=== PATIENT | male | born 1985 | race Caucasian/White ===

== ENCOUNTER 2019-06-25 16:27 | Emergency (ER) | payer SELFPAY ==
[2019-06-25 16:36] VITALS: BP 150/93; PULSE 89; TEMP 97.9; BMI 36.2
--- NOTE | 2019-06-25 17:37 | PDOC ---
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 This pain has been intermittent but has been constant today associated with dizziness described as spinning. States his pain is 7/10 [id number] in quality and radiates to his back in the same position. States he has been stress for about a month because he is on Workmen's Compensation currently. He is a smoker 1 pack/day but has increased his use recently. He has had no recent travel, family history negative for AK/CVA/PE/DVT. PMD: [facility] PMHX: As above PSOCHX: (+) cig 1 PPD, (-) etoh, (-) drug ALL: NKDA GENERAL/CONSTITUTIONAL: [No fever or chills. No weakness. No weight change.] HEAD, EYES, EARS, NOSE AND THROAT: [No change in vision. No ear pain or discharge. No sore throat.] CARDIOVASCULAR: [(+) chest pain, (-) shortness of breath.] RESPIRATORY: [No cough, wheezing, or hemoptysis.] GASTROINTESTINAL: [No nausea, vomiting, diarrhea or constipation. No rectal bleeding.] GENITOURINARY: [No dysuria, frequency, or change in urination.] MUSCULOSKELETAL: [No joint or muscle swelling or pain. No neck or back pain.] SKIN AND BREASTS: [No rash or easy bruising.] NEUROLOGIC: [No headache, (+) vertigo, loss of consciousness, or loss of sensation.] PSYCHIATRIC: [No depression or anxiety.] ENDOCRINE: [No increased thirst. No abnormal weight change.] HEMATOLOGIC/LYMPHATIC: [No anemia, easy bleeding, or history of blood clots.] ALLERGIC/IMMUNOLOGIC: [No hives or skin allergy. No latex allergy.] GENERAL: [The patient is awake, alert, and fully oriented, in no acute distress. ] HEAD: [Normal with no signs of trauma.] EYES: [Pupils equal, round and reactive to light, extraocular movements intact, sclera anicteric, conjunctiva clear.] ENT: [Ears normal, nares patent, oropharynx clear without exudates. Moist mucous membranes.] NECK: [Normal range of motion, supple without lymphadenopathy, JVD, or masses.] LUNGS: [Breath sounds equal, clear to auscultation bilaterally. No wheezes, and no crackles.] HEART: [Regular rate and rhythm, normal S1 and S2 without murmur, rub.] ABDOMEN: [Soft, nontender, normoactive bowel sounds. No guarding, no rebound. No masses.] EXTREMITIES: [Normal range of motion, no edema. No clubbing or cyanosis. No cords, erythema, or tenderness.] NEUROLOGICAL: [Cranial nerves II through XII grossly intact. Normal speech, normal gait.] PSYCH: [Normal mood, normal affect.] SKIN: [Warm, Dry, normal turgor, no rashes or lesions noted.] Past History - Past Medical History Allergies/Adverse Reactions: Allergies Allergy/AdvReac Type Severity Reaction Status Date / Time No Known Allergies Allergy Verified 06/25/19 16:36 Home Medications: Ambulatory Orders Amitriptyline HCl 25 mg PO DAILY 06/25/19 COPD: No HTN: Yes (Diet controlled) Other medical history: angiogram for heart vein malformation ? - Surgical History Orthopedic Surgery: Yes (R rotator cuff surgery) - Immunization History Immunization Up to Date: No - Psycho Social/Smoking Cessation Hx Smoking Status: Yes Smoking History: Never smoked Have you smoked in the past 12 months: Yes Number of Cigarettes Smoked Daily: 4 'Breaking Loose' booklet given: 04/20/13 Hx Alcohol Use: Yes (occasional) Drug/Substance Use Hx: Yes (marijuana) Substance Use Type: None *Physical Exam - Vital Signs Last Vital Signs Temp Pulse Resp BP Pulse Ox 97.9 F 89 18 150/93 100 06/25/19 16:29 06/25/19 16:29 06/25/19 16:29 06/25/19 16:29 06/25/19 16:36 ED Treatment Course - LABORATORY CBC & Chemistry Diagram: 06/25/19 17:30 06/25/19 17:30 - ADDITIONAL ORDERS Additional order review: Laboratory Results 06/25/19 17:30 Sodium 140 Potassium 4.1 Chloride 107 Carbon Dioxide 26 Anion Gap 7 L BUN 10.7 Creatinine 0.8 Est GFR (CKD-EPI)AfAm 136.03 Est GFR (CKD-EPI)NonAf 117.37 Random Glucose 94 Calcium 8.8 Total Bilirubin 0.5 AST 17 ALT 28 Alkaline Phosphatase 88 Creatine Kinase 194 Creatine Kinase Index 0.6 CK-MB (CK-2) 1.2 Troponin I < 0.02 Total Protein 6.9 Albumin 3.9 06/25/19 17:30 RBC 5.32 MCV 91.2 MCHC 33.2 RDW 13.4 MPV 7.5 Neutrophils % 71.6 Lymphocytes % 19.8 D Monocytes % 7.2 Eosinophils % 0.8 Basophils % 0.6 - RADIOLOGY Radiology Studies Ordered: Category Date Time Status CHEST PA & LAT [RAD] Stat Radiology 06/25/19 17:29 Taken Medical Decision Making - Medical Decision Making 06/25/19 17:31 Patient is a 33-year-old male with 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 This pain has been intermittent but has been constant today associated with dizziness described as spinning. States his pain is 7/10 [id number] in quality and radiates to his back in the same position. States he has been stress for about a month because he is on Workmen's Compensation currently. He is a smoker 1 pack/day but has increased his use recently. He has had no recent travel, family history negative for AK/CVA/PE/DVT. Symptoms seems to be consistent with noncardiac chest pain. However patient is a smoker 1 pack cigarette per day will check troponin x1 Labs Chest x-ray EKG Toradol. refused Review of discharge showed that patient had a normal echo in 2012. Patient provided further history states that he had a stress test and Holter monitor about 5 years ago which had no acute findings. Laboratory Tests 06/25/19 06/25/19 17:30 17:30 WBC 9.2 Hgb 16.1 Hct 48.5 Plt Count 236 Sodium 140 Potassium 4.1 Chloride 107 Carbon Dioxide 26 Anion Gap 7 L BUN 10.7 Troponin I < 0.02 Labs reviewed no acute findings Chest x-ray negative no acute infiltrates EKG: Sinus rate 100, LAD, incomplete RBBB, no ST-T wave changes. Patient feels improved states his chest pain is resolved. 06/25/19 19:10 I discussed the physical exam findings, ancillary test results and final diagnoses with the patient. I answered all of the patient's questions. The patient was satisfied with the care received and felt comfortable with the discharge plan and treatment plan. The Patient agrees to follow up with the primary care physician within 24-72 hours. Patient instructed to follow-up with cardiology. 06/25/19 20:28 Discharge - Discharge Information Problems reviewed: Yes Clinical Impression/Diagnosis: Chest pain Qualifiers: Chest pain type: unspecified Qualified Code(s): R07.9 - Chest pain, unspecified Condition: Stable Disposition: HOME - Follow up/Referral Referrals: Jasper Gloria MD [Staff Physician] - - Patient Discharge Instructions Additional Instructions: Your Discharge Instructions: You must call primary care physician within 24 hours to arrange follow-up. Return to the Emergency Department with any new, persistent or worsening symptoms, for fever, chills, SOB, dizziness or any other concerning changes that may occur. Follow up with cardiology - Post Discharge Activity
[2019-06-25 17:41] LABS: BASO % 0.6 % (0-2.0); EOS % 0.8 % (0-4.5); HEMATOCRIT 48.5 % (35.4-49); HEMOGLOBIN 16.1 GM/dL (11.7-16.9); LYMPH % 19.8 % (8-40); MCH 30.2 pg (25.7-33.7); MCHC 33.2 g/dl (32.0-35.9); MEAN CELL VOLUME 91.2 fl (80-96); MEAN PLT VOLUME 7.5 fl (7.5-11.1); MONO % 7.2 % (3.8-10.2); NEUT % 71.6 % (42.8-82.8); PLATELET COUNT 236 K/MM3 (134-434); RBC 5.32 M/mm3 (4.00-5.60); RDW 13.4 % (11.9-15.9); WHITE BLOOD COUNT 9.2 K/mm3 (4.0-10.0)
[2019-06-25 18:09] LABS: ALBUMIN 3.9 g/dl (3.4-5.0); ALK PHOS 88 U/L (45-117); ANION GAP 7 MMOL/L (8-16); BILIRUBIN,TOTAL 0.5 mg/dL (0.2-1); BLOOD UREA NITROGEN 10.7 mg/dL (7-18); CALCIUM 8.8 mg/dL (8.5-10.1); CHLORIDE 107 mmol/L (98-107); CO2 26 mmol/L (21-32); CREATININE 0.8 mg/dL (0.55-1.3); GLUCOSE,RANDOM 94 mg/dL (74-106); POTASSIUM 4.1 mmol/L (3.5-5.1); SGOT/AST 17 U/L (15-37); SGPT/ALT 28 U/L (13-61); SODIUM 140 mmol/L (136-145); TOT PROT 6.9 g/dl (6.4-8.2)
--- NOTE | 2019-06-26 15:50 | EKG ---
Test Reason : Blood Pressure : / mmHG Vent. Rate : 100 BPM Atrial Rate : 100 BPM P-R Int : 122 ms QRS Dur : 098 ms QT Int : 360 ms P-R-T Axes : 021 -20 051 degrees QTc Int : 464 ms NORMAL SINUS RHYTHM INCOMPLETE RIGHT BUNDLE BRANCH BLOCK POSSIBLE LATERAL INFARCT (CITED ON OR BEFORE 20-APR-2013) ABNORMAL ECG WHEN COMPARED WITH ECG OF 23-APR-2013 10:36, NO SIGNIFICANT CHANGE WAS FOUND Confirmed by JONELLE MOORE MD ([id number]) on 06/26/2019 3:49:51 PM Referred By: Confirmed By:JONELLE MOORE MD
== END 2019-06-25 19:24 | disposition home or self-care (01) ==
LOC: JER 16:27
DX: R07.9 Chest pain, unspecified (principal); I10 Essential (primary) hypertension; Z98.890 Other specified postprocedural states
CPT/HCPCS: 36415; 71046-TC-FY; 80053; 82550; 82553; 84484; 85025; 93005; 93010; 99284-25

== ENCOUNTER 2020-05-26 20:47 | Emergency (ER) | payer OTHER ==
[2020-05-26 20:53] VITALS: BMI 31.1
--- OUTSIDE RECORDS SUMMARY | 2020-05-26 20:58 | XMS ---
:1985 Author Organization [facility] Support Name Relationship Address Phone [place] [address] [employer] Unavailable [address] [place] [address] [employer] [address] [place] [id number] Re-disclosure Warning The records that you are about to access may contain information from federally- assisted alcohol or drug abuse programs. If such information is present, then the following federally mandated warning applies: This information has been disclosed to you from records protected by federal confidentiality rules (42 CFR part 2). The federal rules prohibit you from making any further disclosure of this information unless further disclosure is expressly permitted by the written consent of the person to whom it pertains or as otherwise permitted by 42 CFR part 2. A general authorization for the release of medical or other information is NOT sufficient for this purpose. The Federal rules restrict any use of the information to criminally investigate or prosecute any alcohol or drug abuse patient.The records that you are about to access may contain highly sensitive health information, the redisclosure of which is protected by Article 27-F of the [facility] Public Health law. If you continue you may haveaccess to information: Regarding HIV / AIDS; Provided by facilities licensed or operated by the [facility] Office of Mental Health; or Provided by the [facility] Office for People With Developmental Disabilities. If such information is present, then the following [facility] mandated warning applies: This information has been disclosed to you from confidential records which are protected by state law. State law prohibits you from making any further disclosure of this information without the specific written consent of the person to whom it pertains, or as otherwise permitted by law. Any unauthorized further disclosure in violation of state law may result in a fine or halfway sentence or both. A general authorization for the release of medical or other information is NOT sufficient authorization for further disclosure. Insurance Providers Payer name Policy type Policy ID Covered Covered libertarian's Policy P dain / Coverage libertarian ID relationship to [facility] [employer] type murray SELF PAY SP INSURANCE [facility] [id number] PLANS
[2020-05-26] MEDS ORDERED: diazePAM 5 MG TABLET PO ONE (21:55)
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
[2020-05-26] MEDS ORDERED: diazePAM 5 MG TABLET ONE (21:58)
[2020-05-26 23:01] LABS: BASO % 0.6 % (0-2.0); EOS % 0.2 % (0-4.5); HEMATOCRIT 46.5 % (35.4-49); HEMOGLOBIN 15.8 GM/dL (11.7-16.9); LYMPH % 24.1 % (8-40); MCH 30.7 pg (25.7-33.7); MCHC 33.9 g/dl (32.0-35.9); MEAN CELL VOLUME 90.5 fl (80-96); MEAN PLT VOLUME 7.4 fl (7.5-11.1); MONO % 8.5 % (3.8-10.2); NEUT % 66.6 % (42.8-82.8); PLATELET COUNT 283 K/MM3 (134-434); RBC 5.14 M/mm3 (4.00-5.60); RDW 13.3 % (11.9-15.9); WHITE BLOOD COUNT 11.4 K/mm3 (4.0-10.0)
[2020-05-26 23:38] LABS: ALK PHOS 87 U/L (45-117); BILIRUBIN,TOTAL 0.9 mg/dL (0.2-1); CHLORIDE 103 mmol/L (98-107); CREATININE 0.8 mg/dL (0.55-1.3); POTASSIUM 3.8 mmol/L (3.5-5.1); SGOT/AST 21 U/L (15-37); SGPT/ALT 23 U/L (13-61)
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
[2020-05-27 00:28] LABS: ALBUMIN 4.3 g/dl (3.4-5.0); ANION GAP 10 MMOL/L (8-16); BLOOD UREA NITROGEN 9.6 mg/dL (7-18); CALCIUM 9.2 mg/dL (8.5-10.1); CO2 25 mmol/L (21-32); GLUCOSE,RANDOM 84 mg/dL (74-106); MAGNESIUM 2.2 mg/dL (1.8-2.4); SODIUM 138 mmol/L (136-145); TOT PROT 7.8 g/dl (6.4-8.2)
[2020-05-27] MEDS ORDERED: QUEtiapine FUMARATE 300 MG TABLET PO ONE (01:29)
[2020-05-27] MEDS ORDERED: QUEtiapine FUMARATE 100 MG TABLET (FP) ONE (01:35)
[2020-05-27 06:13] VITALS: TEMP 97.7
--- NOTE | 2020-05-27 07:44 | PDOC ---
*Physical Exam - Vital Signs Last Vital Signs Temp Pulse Resp BP Pulse Ox 97.7 F 65 18 115/65 99 05/27/20 06:12 05/27/20 06:12 05/27/20 06:12 05/27/20 06:12 05/27/20 06:12 ED Treatment Course - LABORATORY CBC & Chemistry Diagram: 05/26/20 22:45 05/26/20 22:45 - ADDITIONAL ORDERS Additional order review: Laboratory Results 05/26/20 22:45 Sodium 138 Potassium 3.8 Chloride 103 Carbon Dioxide 25 Anion Gap 10 BUN 9.6 Creatinine 0.8 Est GFR (CKD-EPI)AfAm 135.08 Est GFR (CKD-EPI)NonAf 116.55 Random Glucose 84 Calcium 9.2 Magnesium 2.2 Total Bilirubin 0.9 AST 21 ALT 23 Alkaline Phosphatase 87 Troponin I < 0.02 Total Protein 7.8 Albumin 4.3 05/26/20 22:45 RBC 5.14 MCV 90.5 MCHC 33.9 RDW 13.3 MPV 7.4 L Neutrophils % 66.6 Lymphocytes % 24.1 D Monocytes % 8.5 Eosinophils % 0.2 Basophils % 0.6 - Medications Given in the ED: ED Medications Discontinued Medications Generic Name Dose Route Start Last Admin Trade Name Freq PRN Reason Stop Dose Admin Diazepam 5 mg 05/26/20 21:55 05/26/20 22:01 Valium - PO 05/26/20 21:56 5 mg ONCE ONE Administration Quetiapine Fumarate 300 mg 05/27/20 01:29 05/27/20 01:36 Seroquel - PO 05/27/20 01:30 300 mg ONCE ONE Administration Medical Decision Making - Medical Decision Making 05/27/20 07:41 Sign out received from Dr Coppola. Emeterio Yeung is a 35yo man seen overnight with depression and report of manic v hypomanic episodes over the past few weeks. He was medically cleared for discharge overnight but is here waiting to be seen by psychiatry. The pt received 5mg PO valium as well as 300mg PO seroquel and has been sleeping comfortably. 05/27/20 09:19 - Seen by psychiatry, Carlos Vidal. Cleared for discharge and outpatient follow up - Pt reports no questions, understands his follow up plan - Will discharge home Discussed with Dr Nassef Josefina Ramm PGY3 Discharge - Discharge Information Problems reviewed: Yes Clinical Impression/Diagnosis: Psychological disorder Condition: Stable Disposition: HOME - Admission No - Follow up/Referral Referrals: Carlos Vidal NP [Nurse Practitioner] - - Patient Discharge Instructions Patient Printed Discharge Instructions: Bipolar Disorder Additional Instructions: Discharge Instructions You were seen in the emergency department for recent depression and other psychological symptoms. You were cleared of any medical abnormality and were seen by the hospital psychiatry team. You will need to follow up with psychiatry as instructed at [facility] ([phone]). Seek immediate medical care at the closest hospital for any worsening symptoms, thoughts of suicide, thoughts of harming yourself or others, or any other m edical emergency. - Post Discharge Activity Work/Back to School Note: My Personal Safety Plan
--- NOTE | 2020-05-27 08:50 | CON.PSY ---
Psychiatry Consult Chief Complaint: Patient here for acute onset of Depressive symptoms History of Present Problem: Patient was brought to ER by his family because of his depressive symptoms, He reports that he has always been depressed but since August 2018 when he broke up with his and moved out, he has been worse. Recently,and what sparked his worsening symptoms was when he saw his exwife with her new boyfriend at his daughter's communion. He feels alone and has difficiulty sleeping Symptoms: reports: Depressed Mood, Worthlessness/Guilt, Decreased Energy, Impaired Concentration - Family History Family History: Denies - Allergies Allergies: Allergies Allergy/AdvReac Type Severity Reaction Status Date / Time No Known Allergies Allergy Verified 06/25/19 16:36 - Current Living Status Usual Living Arrangement: Alone (inhis own rental apartment) - Current Mental Status Evaluation Appearance: Other (normal appearance for the settin) - Affect Appropriateness: Appropriate to Content - Mood Mood: Depressed, Anxious, Irritable - Speech/Language Expressive: Coherent Receptive: Age Appropriate Comprehension of Spoken Words - Psychomotor Activity Psychomotor Activity: Normal - Thought Process Thought Process: Intact - Thought Content Hallucinations: Absent Delusions: Absent - Self Perception Self Perception: No Impairment - Cognition Attention: Alert Orientation: Time, Person, Place Memory, Immediate Recall: Intact Memory, Short Term: 3/3 - Concentration Simple Calculations Intact: Yes - Abstraction Proverb Interpretation: Intact Judgement: Minimally Impaired - Insight Insight: Impaired - Impulse Control Impulse Control: Minimally Impaired - Suicidal Ideation Suicidal Ideation: No Assessment/Plan Acute streses disorder on chronic depression Rule out Bipolar hx 5 suicidal attempt in the past no hx of psych. history no psych hospitalization no psych. meds in the past Not suicidal at this time/no attempt/no plan He can be discharged to home Rec: Continue Seroquel q hs for now Patient will come to see me in the [facility] at [facility], [place] in the am [phone] [facility]
[2020-05-27 09:58] VITALS: BP 126/68; PULSE 72
--- NOTE | 2020-05-27 14:03 | EKG ---
Test Reason : Blood Pressure : / mmHG Vent. Rate : 066 BPM Atrial Rate : 066 BPM P-R Int : 116 ms QRS Dur : 094 ms QT Int : 392 ms P-R-T Axes : 011 -07 035 degrees QTc Int : 410 ms NORMAL SINUS RHYTHM INCOMPLETE RIGHT BUNDLE BRANCH BLOCK BORDERLINE ECG WHEN COMPARED WITH ECG OF 25-JUN-2019 16:22, VENT. RATE HAS DECREASED BY 34 BPM QT HAS SHORTENED Confirmed by JONELLE MOORE MD ([id number]) on 05/27/2020 2:03:07 PM Referred By: Confirmed By:JONELLE MOORE MD
== END 2020-05-27 09:58 | disposition home or self-care (01) ==
LOC: JER 20:47
DX: F09 Unspecified mental disorder due to known physiological condition (principal)
CPT/HCPCS: 36415; 71046-TC-FY; 80053; 83735; 84484; 85025; 93005; 93010; 99285-25; U0003